=== PATIENT | male | born 1950 | race Caucasian/White ===

== ENCOUNTER 2017-02-02 13:12 | Emergency (ER) | payer MEDICARE, BC ==
[2017-02-02 13:26] VITALS: BP 161/85
--- NOTE | 2017-02-02 14:20 | UC ---
Back Pain HPI - HPI Summary HPI Summary: 66 yo male 6 days s/p fall persistent back pain no f/c no paresthesia no bowel or bladder dysfunction no hx of CA - History of Current Complaint Chief Complaint: UCBackPain Stated Complaint: FELL BACK PAIN Time Seen by Provider: 02/02/17 13:45 Hx Obtained From: Patient Onset/Duration: Sudden Onset, Lasting Days Timing: Constant Severity Initially: Moderate Severity Currently: Moderate Pain Intensity: 7 Pain Scale Used: 0-10 Numeric Back Pain: Is Discrete @ - see image Character: Sharp, Spasmodic, Stiffness Aggravating Factor(s): Movement, Bending Alleviating Factor(s): Rest, OTC Meds Associated Signs And Symptoms: Negative: Swelling, Redness, Bruising, Fever, Weakness, Numbness, Tingling, Abdominal Pain, Flank Pain, Bladder Incontinence, Bowel Incontinence, Weight Loss, Pain with Weight Bearing - Allergies/Home Medications Allergies/Adverse Reactions: Allergies Allergy/AdvReac Type Severity Reaction Status Date / Time Sulfa Drugs Allergy Hives Verified 07/19/16 13:14 PMH/Surg Hx/FS Hx/Imm Hx Previously Healthy: Yes - Surgical History Surgical History: Yes Surgery Procedure, Year, and Place: esophageal cyst removal 2008 - Family History Known Family History: Positive: Hypertension - Social History Alcohol Use: Weekly Substance Use Type: None Smoking Status (MU): Never Smoked Tobacco Review of Systems Constitutional: Negative Skin: Negative Eyes: Negative ENT: Negative Respiratory: Negative Cardiovascular: Negative Gastrointestinal: Negative Genitourinary: Negative Motor: Negative Neurovascular: Negative Musculoskeletal: Arthralgia, Myalgia Neurological: Negative Psychological: Negative Is Patient Immunocompromised?: No All Other Systems Reviewed And Are Negative: Yes Physical Exam Triage Information Reviewed: Yes Appearance: Well-Appearing, No Pain Distress, Well-Nourished Vital Signs: Initial Vital Signs Temp 97.3 F 02/02/17 13:22 Pulse 60 02/02/17 13:22 Resp 16 02/02/17 13:22 BP 161/85 02/02/17 13:22 Pulse Ox 100 02/02/17 13:22 Vital Signs Reviewed: Yes ENT: Positive: Hearing grossly normal. Negative: Nasal congestion, Nasal drainage, Muffled voice, Hoarse voice Neck: Positive: Supple Respiratory: Positive: Lungs clear, Normal breath sounds, No respiratory distress Cardiovascular: Positive: RRR, No Murmur Musculoskeletal: Positive: Strength Intact, No Edema Neurological: Positive: Alert Psychological Exam: Normal Skin Exam: Normal Diagnostics - Radiology No standard instances Xray Interpretation: No Acute Changes - DJD Radiology Interpretation Completed By: ED Physician Back Pain Course/Dx - Differential Dx/Diagnosis Provider Diagnoses: acute lumbar myofascial strain/spasm Discharge - Discharge Plan Condition: Stable Disposition: HOME Prescriptions: Cyclobenzaprine TAB* [Flexeril TAB*] 5 mg PO TID PRN #12 tab PRN Reason: Spasms Naproxen Sodium [Naproxen Sodium 500 MG TAB] 500 mg PO BID PRN #30 tab PRN Reason: Pain Patient Education Materials: Low Back Strain (ED) Referrals: Adali Latham MD [Primary Care Provider] - Additional Instructions: try naproxen instead of ibuprofen see your provider as planned Images Front/Back of Body, Lg ([place]): 1 - pain localized here, -SLR, brisk DTRs, limited ROM, slow stiff gait
--- NOTE | 2017-02-02 14:33 | RAD ---
Indication: Back pain. 5 views of lumbar spine demonstrate vertebral bodies to be normal in height. Disc spaces all well-preserved. Pedicles appear intact. IMPRESSION: No fracture of the lumbar spine is noted.
== END 2017-02-02 14:51 | disposition home or self-care (01) ==
LOC: UCEAST 13:12
DX: S39.012A Strain of muscle, fascia and tendon of lower back, initial encounter (principal); Z88.2 Allergy status to sulfonamides; W19.XXXA Unspecified fall, initial encounter; Y92.9 Unspecified place or not applicable
CPT/HCPCS: 72110; 99212; G0463

== ENCOUNTER 2020-06-18 16:54 | Observation (INO) ==
[2020-06-18 18:01] LABS: ABS Eosinophils 0.1 10^3/ul (0-0.6); ABS Lymphocytes 1.1 10^3/ul (1.0-4.8); ABS Monocytes 0.4 10^3/ul (0-0.8); ABS Neutrophils 2.5 10^3/ul (1.5-7.7); Eosinophil % 2.4 %; Hematocrit 42 % (42-52); Hemoglobin 14.8 g/dL (14.0-18.0); Lymphocyte % 26.8 %; Mean Corpuscular HGB Conc 36 g/dL (31-36); Mean Corpuscular Hemoglobin 34 pg (27-31); Mean Corpuscular Volume 96 fL (80-94); Mean Platelet Volume 5.7 fL (7.4-10.4); Nucleated Red Blood Cells % 0.1; Platelet Count 151 10^3/uL (150-450); Red Blood Count 4.34 10^6 /uL (4.18-5.48); Red Cell Distribution Width 15 % (10-15); White Blood Count 4.3 10^3/uL (3.5-10.8)
[2020-06-18 18:19] LABS: INR 0.92 (0.82-1.09); Troponin I 0.01 ng/mL (<0.03)
[2020-06-18 18:32] LABS: Potassium 4.1 mmol/L (3.5-5.0)
[2020-06-18 18:33] LABS: Albumin 4.6 g/dL (3.2-5.2); Albumin/Globulin Ratio 2.2 (1-3); EGFR African American 84.7 (>60); Globulin 2.1 g/dL (2-4); Total Protein 6.7 g/dL (6.4-8.9)
[2020-06-18 21:54] LABS: HDL Cholesterol 130.6 mg/dL
[2020-06-19 15:00] VITALS: BP 133/70
== END 2020-06-19 17:40 | disposition home or self-care (01) ==
LOC: MEDTELE 16:54 → ED 16:54 → MEDTELE 06-19 01:17
PROVIDERS: ADMIT Internal Medicine; ATTEND Internal Medicine